=== PATIENT | female | born 1980 | race Caucasian/White ===

== ENCOUNTER → 2017-01-21 | Outpatient (CLI) | payer OTHER, MEDICAID ==
[~2017-01-21] MED LIST: ABILIFY 2 MG2 MG PO; ACTIQ400 MCG PO; AMBIEN 5 MG TABL5 M1 PO; ATIVAN0.5 MG PO; BACLOFEN 10MG T10 M1 PO; BACLOFEN 10MG T10 MG PO; BENADRYL25 MG PO; CLONAZEPAM 0.50.5 M1 PO; CREON 10 CAPSUL1 CA1 PO; DILAUDID 2 MG TA2 MG PO; DILAUDID8 MG PO; DURAGESIC1 EAC1 TOP; ESTRATEST PO; HYDROXYZINE HCL10 M1 PO; IMITREX5 MG PO; JUNEL FE 1-201 EACH PO; LEVEMIR; LEXAPRO 10 MG T10 MG PO; LIPITOR 20 MG T20 M1 PO; LISINOPRIL2.5 MG PO; LYRICA 50 MG50 MG PO; LYRICA 75 MG CA75 MG PO; METFORMIN HCL500 MG PO; MOBIC15 MG PO; MS CONTIN15 MG PO; NEXIUM40 MG PO; NOVOLOG100 UNIT/1; PAXIL10 MG PO; PEPCID40 MG PO; PHENERGAN 25 MG25 M1 PO; SINGULAIR 10 MG10 M1 PO; TOPAMAX 100 MG100 MG PO; TOPAMAX100 MG PO; TYLENOL325 MG PO; URSO FORTE500 MG PO; URSODIOL300 MG PO; VITAMIN B-12500 MCG PO; VITAMIN D3400 UNIT PO; ZOFRAN4 MG PO; ZYRTEC10 MG PO; [UNRECOGNIZED DRUG - REMARK] PO
== END ==
LOC: CAT 09:27 → GI 01-29 12:50
DX: J32.8 Other chronic sinusitis (principal)

== ENCOUNTER → 2017-01-29 | Outpatient (CLI) | payer OTHER, MEDICAID ==
[~2017-01-29] VITALS: Ht 157.5 cm; Wt 99.8 kg
[~2017-01-29] MED LIST changes: +AMITRIPTYLINE H10 M3 PO; +CENTRUM SILVER1 EAC4 PO; +CLONAZEPAM 1 MG1 M1 PO; +DICLOFENAC SODIUM PO; -LEVEMIR; +LEVEMIR SUBQ; +LIDODERM 5%1 PATC1 TRANSDERM; +MELATONIN3 MG PO; -NOVOLOG100 UNIT/1; +NOVOLOG100 UNIT/1 SUBQ; +PAROXETINE CR37.5 MG PO; +PROAIR HFA8.5 GM INH; +PROBIOTIC1 EAC1 PO; +XANAX1 MG PO
--- NOTE | ~2017-01-29 | P ---
[facility] [place] [address] PROCEDURE REPORT Name: YAW ALFARO Room #: REG FABY Cavazos#: [id number] Admission: 01/29/17 Attend Phys: James Constantino Discharge: Date of : 80 Report #: [id number] THIS REPORT FOR: //name// CC: James CONTRERAS BOX Graham Box PROCEDURE PERFORMED: Upper endoscopy with biopsies. HISTORY OF PRESENT ILLNESS: The patient is a 36-year-old female with abdominal pain. She had a complex history as she has had a previous cholecystectomy in 1999, she apparently has had 2 ERCPs for possible sphincter of Oddi dysfunction in the past, unclear if sphincterotomy was performed at that time. She has also undergone an endoscopic ultrasound in the past. Pain is typically in the midepigastrium right upper quadrant typically after a meal. 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 She has had a gastric delayed emptying test in the past. Her weight has been stable. She is on multiple medications. Plan is for EGD. DESCRIPTION OF PROCEDURE: The risks and benefits of the procedure were explained to the patient, those risks including but not limited to bleeding, perforation, the risk of sedation. She understood these risks and gave informed consent. Sedation was given using propofol per anesthesia. Next, using a standard [employer] upper endoscope, the scope was placed in the patient's mouth and advanced under direct vision through the esophagus, stomach and into the second portion of the duodenum. The esophagus was normal throughout. The GE junction was normal. Overall, the gastric mucosa was normal. Because of her symptoms, biopsies were obtained to rule out the possibility of H. pylori. The pylorus was normal and patent. The duodenal bulb, first and second portion were also normal. Biopsies were also obtained to rule out the possibility of celiac sprue. The scope was then withdrawn and the procedure terminated. The patient tolerated the procedure well. IMPRESSION: Normal upper endoscopy. RECOMMENDATIONS: 1. Await biopsy results. 2. Continue current medication. 3. We are discussing possible further evaluation by ERCP specialists. Thank you for allowing me to participate in her care. By: [id number] James Hickman MD /nt
--- NOTE | ~2017-01-29 | S ---
[facility] [place] [address] SURGICAL PATH RPT PROCEDURE Name: ESTER GOMEZ Room #: REG CL M.R.#: [id number] Admission: 01/29/17 Date of : 80 Discharge: Report #: [id number] Path Case #: [id number] PATHOLOGY REPORT COLLECTION DATE: 01/29/2017 RECEIVED DATE: 01/29/2017 SUBMITTING PHYS: Dr. James Hickman OTHER PHYS: Dr. Graham Ahmadi SPECIMEN(S) RECEIVED: A.Duodenum B.Gastric bx * * * * * * * * * * * * FINAL DIAGNOSIS: A. Small bowel, duodenum, biopsy: - No pathologic diagnosis. - Normal villous architecture. B. Stomach, biopsy: - Mild chronic inflammation, non-specific. - No evidence of Helicobacter pylori on immunoperoxidase stain. (EVETTE:; d/t: 02/01/17) PATHOLOGIST: Wilfred Wallace M.D. REPORT ELECTRONICALLY SIGNED BY: Wiflred Wallace M.D. DATE/TIME: 02/02/2017 11:47 * * * * * * * * * * * * GROSS PATHOLOGY: A. Received in formalin labeled "Ester Gomez, duodenal biopsy, R/O sprue," are three segments of xiao soft tissue measuring 0.9 x 0.9 x 0.2 cm in aggregate dimensions and ranging from 0.3 to 0.9 cm in maximum dimension. The specimen is submitted entirely in cassette A1. B. Received in formalin labeled "Ester Gomez, gastric biopsy, R/O H. pylori," are four segments of xiao soft tissue measuring 0.9 x 0.8 x 0.2 cm in aggregate dimensions and ranging from 0.3 to 0.5 cm in maximum dimension. The specimen is submitted entirely in cassette B1. (CAA; 01/30/2017) CLINICAL HISTORY: Pre-op diagnosis: Abdominal pain Post-op diagnosis: R/O sprue, R/O H. pylori INITIAL CPT CODE(S): A; [address] [address] SURGICAL PATH RPT PROCEDURE Name: ESTER GOMEZ Room #: REG FABY Cavazos#: [id number] Admission: 01/29/17 Date of : 80 Discharge: Report #: [id number] Path Case #: [id number]; [id number], [id number] Professional services performed by [email or web address] at [address], [place] [address] Technical services performed by [facility] at [address] [place] [address], [facility] [address] [address]. [facility] [address] [place] [address] PHONE: [phone] DIRECTOR: Frederic Rees M.D. * * * END OF REPORT * * *
== END | disposition home or self-care (01) ==
LOC: GI 07:25
DX: K29.50 Unspecified chronic gastritis without bleeding (principal); E11.9 Type 2 diabetes mellitus without complications; M79.7 Fibromyalgia; K21.9 Gastro-esophageal reflux disease without esophagitis; G43.909 Migraine, unspecified, not intractable, without status migrainosus; J45.909 Unspecified asthma, uncomplicated; F32.9 Major depressive disorder, single episode, unspecified; F41.9 Anxiety disorder, unspecified; Z90.49 Acquired absence of other specified parts of digestive tract; Z98.890 Other specified postprocedural states; Z79.4 Long term (current) use of insulin
CPT/HCPCS: 62110; 62900